=== PATIENT | male | born 1955 | race Caucasian/White ===

== ENCOUNTER → 2020-10-10 09:38 | Outpatient (CLI) | payer OTHER, SELFPAY ==
--- NOTE | 2020-10-10 09:43 | DI.MRI.S_ITS ---
PROCEDURE: MR PELIS WO/W CON INDICATIONS: prostate cancer TECHNIQUE: Coronal HASTE, axial T1 FSE with fat saturation, 3-plane nonbreath-hold T2 FSE. After the administration of contrast, dynamic axial, delayed axial and coronal VIBE or 2-D FLASH with fat saturation through the pelvis. Optional diffusion weighted imaging and ADC may be performed. COMPARISON: [facility], MR, MR PELVIS WITH/WITHOUT CONTRAST, 09/27/2019, 7:55. FINDINGS: Image quality: Diffusion weighted and dynamic contrast enhanced images are diagnostic. Prostate: Gland size is 4 x 3.6 x 3.3 cm; ellipsoid gland volume is 25 mL. No intrinsic T1 hyperintensity. Multiple BPH nodules. Lesion size(s): Lesion 1: 0.6 x 0.6 cm, (01/13). Not significant changed in size. Lesion location(s) (sector): Lesion 1: Left peripheral zone mid gland Lesion description: Lesion 1: Oval T2 weighted imaging (T2WI) morphology score: Lesion 1: 4 Diffusion weighted imaging (DWI) morphology score: Lesion 1: 4 Dynamic contrast enhancement (DCE): Lesion 1: Present Lesion PI-RADS score: Lesion 1: PI-RADS 4. No extraprostatic extension. Genitourinary system: Bladder wall thickness is normal. Distal ureters are non distended. Small bilateral hydroceles. Bowel and peritoneum: No pathologic free pelvic fluid. Inferior colon and small bowel loops are normal in caliber. Mild diverticulosis. Nodes and vessels: No pelvic or inguinal adenopathy by size criteria. Iliac vessels are normal in caliber. Soft tissues: No inguinal hernias. Bones: Marrow demonstrates heterogeneous in similar to the prior exam, without lesions to suggest metastases. IMPRESSION: 1. Left peripheral zone mid gland PI-RADS 4 lesion measuring at 0.6 cm is not felt to be significantly changed in size. 2. No extraprostatic extension. 3. No enlarged adenopathy. 4. Small bilateral hydroceles, unchanged. Dictated by: Milo Arce M.D. on 10/10/2020 at 11:41 Approved by: Milo Arce M.D. on 10/10/2020 at 12:00
== END ==
PROVIDERS: PCP Registered Nurse; Referring Provider Specialist; Visit Provider Specialist
DX: C61 Malignant neoplasm of prostate (principal); N43.3 Hydrocele, unspecified
CPT/HCPCS: 72197

== ENCOUNTER → 2021-06-21 08:31 | Outpatient (CLI) | payer OTHER, SELFPAY ==
--- NOTE | 2021-06-21 | DI.MRI.S_ITS ---
PROCEDURE: MR PELIS WO/W CON INDICATIONS: PROSTATE CANCER TECHNIQUE: Coronal HASTE, axial T1 FSE with fat saturation, 3-plane nonbreath-hold T2 FSE. After the administration of contrast, dynamic axial, delayed axial and coronal VIBE or 2-D FLASH with fat saturation through the pelvis. Optional diffusion weighted imaging and ADC may be performed. COMPARISON: [facility], MR, MR PELVIS WITH/WITHOUT CONTRAST, 09/27/2019, 7:55. [facility], MR, MR PELVIS WO/W CON, 10/10/2020, 10:10. FINDINGS: Image quality: Diffusion weighted and dynamic contrast enhanced images are diagnostic. Prostate: Gland size is 4.4 x 3.9 x 3.9 cm; ellipsoid gland volume is approximately 35 mL. No intrinsic T1 hyperintense signal. Multiple BPH nodules. Lesion size(s): Lesion 1: 0.6 cm, (4/10). Lesion location(s) (sector): Lesion 1: Left peripheral zone mid gland Lesion description: Lesion 1: Oval T2 weighted imaging (T2WI) morphology score: Lesion 1: 4 Diffusion weighted imaging (DWI) morphology score: Lesion 1: 4 Dynamic contrast enhancement (DCE): Lesion 1: Present Lesion PI-RADS score: Lesion 1: PI-RADS 4 Genitourinary system: Bladder wall thickness is normal. Distal ureters are non distended. Small bilateral hydroceles. Bowel and peritoneum: No pathologic free pelvic fluid. Inferior colon and small bowel loops are normal in caliber. Nodes and vessels: No pelvic or inguinal adenopathy by size criteria. Iliac vessels are normal in caliber. Soft tissues: No inguinal hernias. Bones: Marrow demonstrates normal overall signal, without lesions to suggest metastases. IMPRESSION: 1. Left peripheral zone mid gland PI-RADS 4 lesion measuring 0.6 cm, unchanged. 2. No extraprostatic extension. 3. No enlarged lymph nodes. Dictated by: Milo Arce M.D. on 06/21/2021 at 8:43 Approved by: Milo Arce M.D. on 06/21/2021 at 9:07
== END ==
PROVIDERS: PCP Registered Nurse; Referring Provider Specialist; Visit Provider Specialist
DX: C61 Malignant neoplasm of prostate (principal); Z80.42 Family history of malignant neoplasm of prostate
CPT/HCPCS: 72197

== ENCOUNTER → 2022-02-26 06:34 | Outpatient (CLI) | payer OTHER, SELFPAY ==
--- NOTE | 2022-02-26 06:36 | DI.MRI.S_ITS ---
PROCEDURE: MR PELIS WO/W CON INDICATIONS: Prostate CA TECHNIQUE: Coronal HASTE, axial T1 FSE with fat saturation, 3-plane nonbreath-hold T2 FSE. After the administration of contrast, dynamic axial, delayed axial and coronal VIBE or 2-D FLASH with fat saturation through the pelvis. Optional diffusion weighted imaging and ADC may be performed. COMPARISON: [facility], MR, MR PELVIS WITH/WITHOUT CONTRAST, 09/27/2019, 7:55. [facility], MR, MR PELVIS WO/W CON, 06/21/2021, 8:47. FINDINGS: Image quality: Diffusion weighted and dynamic contrast enhanced images are diagnostic. Prostate: Gland size is 4.5 x 4.4 x 3.4 cm; ellipsoid gland volume is 35 mL. No significant foci of intrinsic T1 hyperintensity to suggest hemorrhage. Multiple BPH nodules. Lesion size(s): Lesion 1: 1 cm, (02/12). Previously 0.6 cm, and more remotely 0.8 cm in 2019. No significant additional observations identified. Lesion location(s) (sector): Lesion 1: Left apex peripheral zone Lesion description: Lesion 1: Oval T2 weighted imaging (T2WI) morphology score: Lesion 1: 4 Diffusion weighted imaging (DWI) morphology score: Lesion 1: 3 Dynamic contrast enhancement (DCE): Lesion 1: Present Lesion PI-RADS score: Lesion 1: PI-RADS 4 Genitourinary system: Bladder wall thickness is normal. Distal ureters are non distended. Bowel and peritoneum: No pathologic free pelvic fluid. Inferior colon and small bowel loops are normal in caliber. Diverticulosis. Nodes and vessels: No pelvic or inguinal adenopathy by size criteria. Iliac vessels are normal in caliber. Soft tissues: No inguinal hernias. Bones: Marrow demonstrates normal overall signal, without lesions to suggest metastases. IMPRESSION: 1. Left apex peripheral zone observation measuring 1 cm, PI-RADS 4. The lesion appears slightly increased in size compared to 2019. 2. No enlarged nodes identified. Dictated by: Milo Arce M.D. on 02/26/2022 at 12:59 Approved by: Milo Arce M.D. on 02/26/2022 at 13:22
== END ==
PROVIDERS: PCP Registered Nurse; Referring Provider Specialist; Visit Provider Specialist
DX: D40.0 Neoplasm of uncertain behavior of prostate (principal)
CPT/HCPCS: 72197; A9579

== ENCOUNTER → 2022-11-17 14:43 | Outpatient (CLI) | payer OTHER, SELFPAY ==
--- NOTE | 2022-11-17 14:46 | DI.MRI.S_ITS ---
PROCEDURE: MR PELVIS WO/W CON INDICATIONS: Prostate Cancer TECHNIQUE: Coronal HASTE, axial T1 FSE with fat saturation, 3-plane nonbreath-hold T2 FSE. After the administration of contrast, dynamic axial, delayed axial and coronal VIBE or 2-D FLASH with fat saturation through the pelvis. Optional diffusion weighted imaging and ADC may be performed. COMPARISON: [facility], MR, MR PELVIS WO/W CON, 02/26/2022, 7:13. FINDINGS: Image quality: Suboptimal due to motion artifact and susceptibility artifact from rectal gas/stool. Prostate: Gland size is 4.0 x 3.4 x 4.1 cm; ellipsoid gland volume is 29 mL. Lesion #1: Size: 1.1 x 0.6 centimeters previously 1.0 x 0.6 centimeters no significant change Location: Left posterior medial/posterolateral peripheral zone, mid gland (series 24, image 11) T2 signal: Circumscribed hypointense DWI/ADC signal: Hypointense on ADC images with corresponding DWI hyperintensity DCE: Positive YANG: No large volume bulky extraprostatic extension. However there is long segment abutment of the lesion against the prostate pseudocapsule, difficult to exclude early extraprostatic extension. Seminal vesicle invasion: Absent PI-RADS: T2 signal - 4; ADC - 4; DCE - positive; Overall score: PI-RADS 4. Lesion #2: Size: 1.1 x 0.8 centimeters. Newly apparent. Location: Right posterior medial peripheral zone, mid gland-base (series 24, image 10) T2 signal: Circumscribed hypointense DWI/ADC signal: Hypointense on ADC images with corresponding DWI hyperintensity DCE: Positive YANG: Not identified Seminal vesicle invasion: Not identified PI-RADS: T2 signal - 4; ADC - 4; DCE - positive; Overall score: PI-RADS 4. Genitourinary system: Bladder wall thickness is normal. Distal ureters are non distended. Bowel and peritoneum: No pathologic free pelvic fluid. Inferior colon and small bowel loops are normal in caliber. Nodes and vessels: No pelvic or inguinal adenopathy by size criteria. Iliac vessels are normal in caliber. Bones: Marrow demonstrates unremarkable overall signal, without lesions to suggest metastases. IMPRESSION: 1. Similar size of the previously demonstrated PI-RADS 4 lesion at the left peripheral zone, mid gland. 2. Newly apparent PI-RADS 4 lesion at the right peripheral zone, mid gland-base. 3. No suspicious lymph nodes identified in the imaged pelvis. Dictated by: Issa Hernandez M.D. on 11/18/2022 at 13:56 Approved by: Issa Hernandez M.D. on 11/18/2022 at 14:29
[2022-11-17 15:46] LABS: Prostate Specific Antigen 12.1 ng/mL (0.10-4.00)
== END ==
PROVIDERS: PCP Registered Nurse; Referring Provider Specialist; Visit Provider Specialist
DX: C61 Malignant neoplasm of prostate (principal); Z80.42 Family history of malignant neoplasm of prostate
CPT/HCPCS: 36415; 72197; 84153; A9579